=== PATIENT | male | born 1985 | race Two or more races ===

== ENCOUNTER 2019-05-02 15:37 | Emergency (ER) | payer OTHER ==
[~2019-05-02] VITALS: Ht 182.9 cm; Wt 97.5 kg
== END 2019-05-02 17:00 | disposition home or self-care (01) ==
LOC: ER 15:37
DX: L03.115 Cellulitis of right lower limb (principal); S80.11XS Contusion of right lower leg, sequela; W18.09XS Striking against other object with subsequent fall, sequela